=== PATIENT | female | born 1980 | race African-American/Black ===

== ENCOUNTER 2019-07-04 13:58 | Observation (INO) ==
[2019-07-04] MEDS ORDERED: SODIUM CHLORIDE 0.9% 1,000 ML IV STA (15:02)
[2019-07-04 15:14] LABS: Basophils % 0.4 % (0.0-0.8); Eosinophils # 0.2 10*3/uL (0.0-0.87); Eosinophils % 2.8 % (0.00-10.9); Hematocrit 21.9 VOL% (35.7-47.0); Immature Granulocytes % 0.3 %; Immature Granulocytes Absolute 0.02 #; Lymphocytes # 1.6 10*3/uL (1.4-4.0); Lymphocytes % 21.4 % (21.3-54.2); Mean Corpuscular HGB Conc 24.7 GM/DL (32-36); Mean Corpuscular Volume 62.6 FL (87-102); Mean Platelet Volume 9.9 FL (9.6-12.0); Monocytes % 8.3 % (1.7-12.7); Neutrophils % 66.8 % (38.7-73.9); Platelet Count 549 T/CUMM (130-400); Red Cell Distribution Width 27.8 % (9.3-17.3); White Blood Count 7.5 T/CUMM (4-12)
[2019-07-04 15:19] LABS: Hemoglobin 5.4 GM/DL (12.0-16.0)
[2019-07-04 15:24] LABS: Alanine Aminotransferase 19 U/L (13-56); Alkaline Phosphatase 91 U/L (45-117); Aspartate Amino Transferase 16 U/L (0-37); Bilirubin,Total < 0.39 MG/DL (0.2-1.0); Blood Urea Nitrogen 13 MG/DL (7-18); Calcium 9.1 MG/DL (8.5-10.1); Estimated Glom Filtration Rate 135 ML/MIN; Glucose 108 MG/DL (74-106); Osmolality,Calculated 275.7 MOS/KG (273-304); Total Protein 7.6 G/DL (6.4-8.3)
[2019-07-04 15:58] LABS: Apearance,Urine Slightly Hazy (Clear); Bacteria,Urine Many /HPF (Few); Bilirubin,Urine Negative (Negative); Blood, Urine Negative (Negative); Glucose,Urine (UA) Negative (Negative); Ketones,Urine Negative (Negative); Mucus,Urine Moderate /LPF (Occasional); Nitrite,Urine Positive (Negative); Protein,Urine Negative; Squamous Epithelial Cell,Urine Few /HPF (0-10); Urine Color Yellow (Yellow); Urine Specific Gravity 1.018 (1.001-1.035); Urine Urobilinogen < 2.0 EU/DL (0.2-1.0)
[2019-07-04] MEDS ORDERED: SODIUM CHLORIDE 0.9% 1,000 ML IV PRN (17:07)
[2019-07-04] MEDS ORDERED: LACTULOSE 20 GM/30 ML UDCUP PO PRN (17:09)
[2019-07-04] MEDS ORDERED: guaiFENesin/DM ER 600-30 MG TABLET PO PRN (17:09)
[2019-07-04] MEDS ORDERED: DOCUSATE SODIUM 100 MG CAPSULE PO PRN (17:09)
[2019-07-04] MEDS ORDERED: BISACODYL 5 MG TABLET PO PRN (17:09)
[2019-07-04] MEDS ORDERED: traZODone 50 MG TABLET PO PRN (17:09)
[2019-07-04] MEDS ORDERED: diphenhydrAMINE CAP 25 MG CAPSULE PO PRN (17:09)
[2019-07-04] MEDS ORDERED: NICOTINE 21 MG/24 HR PATCH TRANSDERM PRN (17:09)
[2019-07-04] MEDS ORDERED: ONDANSETRON 4 MG/2 ML VIAL IV PRN (17:09)
[2019-07-04] MEDS ORDERED: ZALEPLON 5 MG CAPSULE PO PRN (17:09)
[2019-07-04] MEDS ORDERED: SIMETHICONE CHEW 125 MG TABLET PO PRN (17:09)
[2019-07-04] MEDS ORDERED: cefTRIAXone 1,000 MG in SYRINGE 1 EACH IV STA (17:22)
[2019-07-04] MEDS ORDERED: ACETAMINOPHEN 325 MG TABLET PO SCH (17:30)
[2019-07-04] MEDS ORDERED: diphenhydrAMINE 50 MG/1 ML VIAL IV SCH (17:30)
[2019-07-04] MEDS ORDERED: FUROSEMIDE 20 MG/2 ML VIAL IV SCH (17:30)
[2019-07-04] MEDS ORDERED: MAGNESIUM SULF RIDER 2 GM in PREMIX 1 EACH IV PRN (17:37)
[2019-07-04] MEDS ORDERED: MAGNESIUM SULF RIDER 4 GM in PREMIX 1 EACH IV PRN (17:37)
[2019-07-04] MEDS: SODIUM CHLORIDE 0.45% 1,000 ML IV SCH (19:28)
[2019-07-05 05:37] LABS: Basophils % 0.3 % (0.0-0.8); Eosinophils # 0.2 10*3/uL (0.0-0.87); Eosinophils % 3.5 % (0.00-10.9); Hematocrit 25.1 VOL% (35.7-47.0); Hemoglobin 6.8 GM/DL (12.0-16.0); Immature Granulocytes % 0.2 %; Immature Granulocytes Absolute 0.01 #; Lymphocytes # 1.7 10*3/uL (1.4-4.0); Lymphocytes % 27.5 % (21.3-54.2); Mean Corpuscular HGB Conc 27.1 GM/DL (32-36); Mean Corpuscular Volume 67.7 FL (87-102); Mean Platelet Volume 9.4 FL (9.6-12.0); Neutrophils % 54.5 % (38.7-73.9); Platelet Count 403 T/CUMM (130-400); Red Blood Count 3.71 MC/CUMM (3.8-5.5); Red Cell Distribution Width 30.4 % (9.3-17.3); White Blood Count 6.3 T/CUMM (4-12)
[2019-07-05 05:39] LABS: Microcytosis 1+; Platelet Estimate Increased
[2019-07-05 05:40] LABS: Hypochromasia 2+; Polychromasia Few
[2019-07-05 05:49] LABS: % Iron Saturation 3.9 % (18-50); Ferritin 1.9 ng/ml (8-252)
[2019-07-05 05:54] LABS: Risk Ratio 4.84; Thyroid Stimulating Hormone 1.56 uIU/ml (0.358-3.74); VLDL CHOLESTEROL 36.4 MG/DL
[2019-07-05 05:58] LABS: Folate 12.5 NG/ML (5.4-24.0)
[2019-07-05] MEDS ORDERED: SODIUM CHLORIDE 0.9% 1,000 ML IV PRN (07:18)
[2019-07-05] MEDS ORDERED: PANTOPRAZOLE 40 MG TABLET PO SCH (09:00)
[2019-07-05] MEDS ORDERED: cefTRIAXone 1,000 MG in SYRINGE 1 EACH IV SCH (09:00)
[2019-07-05] MEDS ORDERED: FOLIC ACID 0.4 MG TABLET PO SCH (09:00)
[2019-07-05] MEDS ORDERED: COENZYME Q10 100 MG CAPSULE PO SCH (09:00)
[2019-07-05] MEDS ORDERED: FERROUS SULFATE 325 MG TABLET PO SCH (09:00)
[2019-07-05] MEDS ORDERED: IRON SUCROSE 100 MG/5 ML VIAL IV SCH (09:00)
[2019-07-05] MEDS ORDERED: IRON SUCROSE 100 MG in SODIUM CHLORIDE 0.9% 100 ML IV SCH (09:00)
[2019-07-05 16:41] VITALS: BP 128/78
[2019-07-05] MEDS: SODIUM CHLORIDE 0.45% 1,000 ML IV SCH (17:59)
[2019-07-05] MEDS ORDERED: ROSUVASTATIN 10 MG TABLET PO SCH (21:00)
== END 2019-07-05 17:58 | disposition home or self-care (01) ==
LOC: N.ED 13:58 → N.EDINP 13:58 → SUATTDRO 17:09 → N.3E 18:15
PROVIDERS: ADMIT Internal Medicine; ATTEND Internal Medicine

== ENCOUNTER 2020-04-21 17:09 | Observation (INO) ==
[2020-04-21] MEDS ORDERED: SODIUM CHLORIDE 0.9% 1,000 ML IV PRN (18:19)
[2020-04-22 05:25] LABS: Hematocrit 28.9 VOL% (35.7-47.0); Hemoglobin 8.4 GM/DL (12.0-16.0)
[2020-04-22 05:30] VITALS: BP 126/72
== END 2020-04-22 07:35 | disposition home or self-care (01) ==
LOC: N.LDOUT 17:09 → N.OB 17:09
PROVIDERS: ADMIT Nurse Practitioner; ATTEND Obstetrics & Gynecology